=== PATIENT | male | born 1995 | race Caucasian/White ===

== ENCOUNTER 2017-10-29 03:56 | Emergency (ER) | payer SELFPAY ==
[2017-10-29] MEDS ORDERED: AMOXICILLIN TR/POT CLAVULANATE 500-125 MG TAB PO ONE (04:41)
--- NOTE | 2017-10-29 04:42 | ER Document Report ---
ED Animal Bite - General Mode of Arrival: Ambulatory Information source: Patient TRAVEL OUTSIDE OF THE [place] IN LAST 30 DAYS: No - HPI Patient complains to provider of: Dog Bite to RUE Location of injury: RUE Severity of injury: Bitten Onset: This evening Context of attack: "Provoked" attack Type of animal: Dog Animal's immunizations: UTD - General Chief Complaint: Dog Bite Stated Complaint: DOG BITE/ARM Time Seen by Provider: 10/29/17 04:27 Notes: 22 year old male with no medical history presents to the ED complaining of a dog bite to the right forearm that occurred earlier this morning. Patient states that he was letting the dogs out when he startled one of his sick dogs who then came at the patient and bit his right forearm. Patient is complaining of right forearm pain, right 5th digit pain, and right 1st digit numbness. Patient denies any difficulty moving his right wrist, hands, or digits. Patient and dog's vaccinations are up to date. (DHARA MELGOZA) - Related Data Allergies/Adverse Reactions: No Known Allergies Allergy (Unverified 10/29/17 04:00) Past Medical History - General Information source: Patient - Social History Smoking Status: Current Every Day Smoker Chew tobacco use (# tins/day): Yes Frequency of alcohol use: Social Drug Abuse: None Family History: Reviewed & Not Pertinent Patient has suicidal ideation: No Patient has homicidal ideation: No Renal/ Medical History: Denies: Hx Peritoneal Dialysis Review of Systems - Review of Systems Constitutional: No symptoms reported EENT: No symptoms reported Cardiovascular: No symptoms reported Respiratory: No symptoms reported Gastrointestinal: No symptoms reported Genitourinary: No symptoms reported Male Genitourinary: No symptoms reported Musculoskeletal: See HPI, Other - Right forearm pain secondary to dog bite. Right 1st digit numbness and right 5th digit tenderness. Skin: No symptoms reported Hematologic/Lymphatic: No symptoms reported Neurological/Psychological: No symptoms reported -: Yes All other systems reviewed and negative Physical Exam - Vital signs Vitals: Temp Pulse Resp BP Pulse Ox 98.5 F 65 16 139/63 H 98 10/29/17 04:00 10/29/17 04:00 10/29/17 04:00 10/29/17 04:00 10/29/17 04:00 - Notes Notes: GENERAL: Alert, interacts well. No acute distress. HEAD: Normocephalic, atraumatic. EYES: Pupils equal, round, and reactive to light. Extraocular movements intact. ENT: Oral mucosa moist, tongue midline. NECK: Full range of motion. Supple. Trachea midline. LUNGS: Clear to auscultation bilaterally, no wheezes, rales, or rhonchi. No respiratory distress. HEART: Regular rate and rhythm. No murmurs, gallops, or rubs. ABDOMEN: Non-distended. EXTREMITIES: Moves all 4 extremities spontaneously. No edema, radial pulses 2/4 bilaterally. No cyanosis. One 2 mm superficial and one 5 mm deep puncture wounds to the ulnar aspect of the right forearm. Some subcutaneous fat exposed. Did not penetrate muscle. Superficial abrasions to the ulnar and volar aspects of the right forearm. No evidence of puncture wounds to the volar aspect. No tenderness to palpation over the right 1st or 5th digit. NEUROLOGICAL: Alert and oriented x3. Normal speech. PSYCH: Normal affect, normal mood. SKIN: Warm, dry, normal turgor. See extremity exam above. (DHARA MELGOZA) Course - Re-evaluation Re-evalutation: 10/29/17 04:43 Puncture wound penetrates through subcutaneous tissue but not into muscle, the tingling in his thumb is likely caused by the crushing to the dorsal aspect of the forearm, no evidence of nerve laceration particularly because the puncture wounds are not over top of the median nerve which is what would cause the tingling in the thumb. Patient's tetanus status is up-to-date, wound was clean , patient agrees with not closing the wound due to risk of infection, patient will be started on Augmentin and discharged to home. Will follow up with orthopedics given the numbness in his right thumb. Will return for swelling, drainage, redness or new or concerning symptoms. (WILL MELTON) - Vital Signs Vital signs: Temp Pulse Resp BP Pulse Ox 98.0 F 55 L 18 124/66 98 10/29/17 05:32 10/29/17 05:32 10/29/17 05:32 10/29/17 05:32 10/29/17 05:32 Discharge - Discharge Clinical Impression: Pre-hypertension, Tobacco abuse, Tobacco abuse counseling Dog bite of right forearm Qualifiers: Encounter type: initial encounter Qualified Code(s): S51.851A - Open bite of right forearm, initial encounter Condition: Stable Disposition: HOME, SELF-CARE Additional Instructions: Animal Bites Animal bites are often heavily contaminated with bacteria. In spite of thorough cleansing and proper treatment, these wounds frequently become infected. Bite wounds of the hands are especially prone to complications. Bites are dressed, if possible. Large wounds may require suturing after internal cleansing. Because of infection risk, some large wounds must remain unstitched. Your doctor is trained to advise you on the best treatment for your bite. Call the doctor at once if the wound becomes red, swollen, warm, increasingly painful, or if it begins to drain. Danger signs also include red streaks up the involved extremity, swollen glands in the groin or under the arm , or fever and chills. The risk of rabies from domestic animals is very low. Prescriptions: Amoxicillin/Potassium Clav [Augmentin 875-125 Tablet] 1 each PO BID #14 tablet Forms: Elevated Blood Pressure, Smoking Cessation Education Referrals: IRA REYES MD [ACTIVE STAFF] - Follow up in 3-5 days Scribe Attestation: 10/29/17 05:47 I personally performed the services described in the documentation, reviewed and edited the documentation which was dictated to the scribe in my presence, and it accurately records my words and actions. (WILL MELTON) Scribe Documentation - Scribe Written by Wily:: Wily Alexandra, 10/29/2017 0505 acting as scribe for :: Mikie
[2017-10-29 05:47] VITALS: BP 124/66
== END 2017-10-29 05:40 | disposition home or self-care (01) ==
LOC: ER 03:56
DX: S51.851A Open bite of right forearm, initial encounter (principal); R03.0 Elevated blood-pressure reading, without diagnosis of hypertension; F17.200 Nicotine dependence, unspecified, uncomplicated; W54.0XXA Bitten by dog, initial encounter
CPT/HCPCS: 99283